=== PATIENT | female | born 1980 | race Caucasian/White ===

== ENCOUNTER → 2017-08-25 | Outpatient (CLI) | payer BC, OTHER ==
[~2017-08-25] MED LIST: IBU800 PO; PER PO
--- NOTE | 2017-08-26 09:40 | RADIOLOGY IMAGING REPORT ---
FACILITY: [facility] - [place] PATIENT NAME: MATY HOANG : [id number] MR: [id number] V: [id number] EXAM DATE: [id number] ORDERING PHYSICIAN: EDUAR MONTES TECHNOLOGIST: Herminia Schwab PROCEDURE:US LEFT BREAST COMPARISON:None. INDICATIONS:Breast lumps FINDINGS: Combined mammogram and Ultrasound findings. DIAGNOSTIC CATEGORY 2--BENIGN FINDING. RECOMMENDATIONS: ROUTINE MAMMOGRAM AND CLINICAL EVALUATION. IMPRESSION: BIRADS 2: Benign finding. Dictated by: Uri Perkins M.D. on 08/25/2017 at 16:17 Transcribed by: ЕКАТЕРИНА on 08/25/2017 at 16:22 Approved by: Juanito Valladares M.D. on 08/26/2017 at 9:39 [facility]
--- NOTE | 2017-08-26 09:40 | RADIOLOGY IMAGING REPORT ---
FACILITY: [facility] PATIENT NAME: MATY HOANG : [id number] MR: [id number] V: [id number] EXAM DATE: [id number] ORDERING PHYSICIAN: EDUAR MONTES TECHNOLOGIST: Maribel Roy PROCEDURE:BILATERAL DIAGNOSTIC MAMMOGRAPHY WITH TOMOGRAPHY & COMPUTER ASSISTED DIAGNOSIS COMPARISON:None. INDICATIONS:Rt breast lumps FINDINGS: Mammographic findings and Ultrasound findings on Ultrasound report. DIAGNOSTIC CATEGORY 2--BENIGN FINDING. RECOMMENDATIONS: ROUTINE MAMMOGRAM AND CLINICAL EVALUATION. IMPRESSION: BIRADS 2: Benign finding. 1. Dictated by: Uri Perkins M.D. on 08/25/2017 at 16:16 Transcribed by: ЕКАТЕРИНА on 08/25/2017 at 16:20 Approved by: Juanito Valladares M.D. on 08/26/2017 at 9:39 [facility]
--- NOTE | 2017-08-26 09:40 | RADIOLOGY IMAGING REPORT ---
[place] [facility] [place]IENT NAME: MATY HOANG : [id number] MR: [id number] V: [id number] EXAM DATE: [id number] ORDERING PHYSICIAN: EDUAR MONTES TECHNOLOGIST: Herminia Schwab PROCEDURE:US RIGHT BREAST COMPARISON:None. INDICATIONS:Rt breast lumps/bilateral breast pain. FINDINGS: BILATERAL DIAGNOSTIC MAMMOGRAM WITH TOMOGRAPHY & COMPUTER ASSISTED DIAGNOSIS: The breasts are heterogeneously dense. Benign appearing asymmetries are scattered bilaterally. A few benign appearing calcifications are scattered in the breasts. ULTRASOUND RIGHT BREAST: Several small cysts measuring < 5mm in diameter are scattered in both breasts. DIAGNOSTIC CATEGORY 2--BENIGN FINDING. RECOMMENDATIONS: ROUTINE MAMMOGRAM AND CLINICAL EVALUATION. Bilateral screening mammography in 1 yr. IMPRESSION: BIRADS 2: Benign finding. An imaging study negative for malignancy should not deter biopsy if indicated clinically. Dictated by: Uri Perkins M.D. on 08/25/2017 at 16:14 Transcribed by: MERY on 08/26/2017 at 8:52 Approved by: Juanito Valladares M.D. on 08/26/2017 at 9:39 [facility]
== END ==
LOC: MAMO 01:12
PROVIDERS: ATTEND Physician Assistant
DX: N60.01 Solitary cyst of right breast (principal); R92.1 Mammographic calcification found on diagnostic imaging of breast
CPT/HCPCS: 77062; 77066